=== PATIENT | female | born 1950 | race Caucasian/White ===

== ENCOUNTER 2016-08-26 20:52 | Emergency (ER) | payer SELFPAY ==
[2016-08-26 21:32] LABS: BASOPHIL# 0.2 X 10^3uL (0.0-0.1); BASOPHILS 1.7 % (0.0-2.0); EOSINOPHILS 1.4 % (0.0-6.0); EOSINOPHILS# 0.2 X 10^3uL (0.0-0.4); HEMATOCRIT 49.3 % (36.0-48.0); HEMOGLOBIN 16.8 g/dL (12.0-16.0); LYMPHOCYTES 34.4 % (20.0-40.0); MEAN CELL VOLUME 95.1 fL (80.0-100.0); MEAN CORPUSCULAR HEMOGLOBIN 32.4 pg (29.0-35.0); MEAN PLATELET VOLUME 8.3 fL (7.4-10.4); MONOCYTES 4.4 % (2.0-10.0); MONOCYTES# 0.6 X 10^3uL (0.2-1.0); NEUTROPHILS 58.1 % (54.0-75.0); NEUTROPHILS# 7.5 X 10^3uL (2.6-6.7); PLATELET COUNT 357 X 10^3uL (130-440); RED BLOOD COUNT 5.18 X 10^6uL (4.20-6.10); RED CELL DISTRIBUTION WIDTH 12.4 % (11.5-14.5)
[2016-08-26 21:40] LABS: LYMPHOCYTES# 4.5 X 10^3uL (0.8-3.8)
[2016-08-26 21:48] LABS: BLOOD UREA NITROGEN 11 mg/dL (7-17); CALCIUM 10.1 mg/dL (8.4-10.2); CHLORIDE 107 mmol/L (98-107); CREATININE 0.9 mg/dL (0.5-1.0); EST GLOMERULAR FILTRATION RATE > 60 mL/min; POTASSIUM 3.6 mmol/L (3.5-5.1); SODIUM 137 mmol/L (137-145)
[2016-08-26 21:50] LABS: GLUCOSE 309 mg/dL (70-100)
[2016-08-26] MEDS ORDERED: IPRATROPIUM/ALBUTEROL 0.5/3 MG 3 ML AMPUL.NEB INHALATION ONE (22:16)
[2016-08-26] MEDS ORDERED: ALPRAZolam 0.5 MG TABLET PO ONE (22:36)
[2016-08-26 23:38] LABS: URINE MUCUS NONE SEEN (Up to 25%); URINE RBC NONE SEEN (0-5/hpf)
[2016-08-26 23:47] LABS: URINE APPEARANCE SLIGHTLY CLOUDY; URINE COLOR YELLOW; URINE LEUKOCYTE ESTERASE NEGATIVE (NEGATIVE)
[2016-08-26 23:48] LABS: URINE BACTERIA <10 ORGANISMS/hpf (<10/hpf); URINE BILIRUBIN NEGATIVE (NEGATIVE); URINE BLOOD TRACE (NEGATIVE); URINE GLUCOSE 100mg/dL (NEGATIVE); URINE KETONE 50mg/dL (2+) (NEGATIVE); URINE NITRITE NEGATIVE (NEGATIVE); URINE PROTEIN 30mg/dL (1+) (NEG - TRACE); URINE SQUAMOUS EPITHELIAL CELL 0-5/hpf (<= 15/hpf); URINE UROBILINOGEN 0.2mg/dL (Normal) (NEG-1mg/dL); URINE WBC 0-4/hpf (0-4/hpf)
[2016-08-27] MEDS ORDERED: INSULIN REGULAR HUMAN 100 UNITS/ML ML ONE (00:26)
--- NOTE | 2016-08-27 01:21 | ER PHYSICIAN DOCUMENTATION ---
Physician Documentation [facility] Name:Corrine Lagunas Age:66 yrs Sex:Female :1950 Arrival Date:08/26/2016 Time:20:52 Bed4 Private MD: Edson Ramirez Disposition: 08/27 00:09 Critical Care: not applicable. sc Disposition: 08/27/16 00:11 Discharged to Home/Self Care. Impression: Viral Upper Respiratory Infection (URI), Diabetes with Hyperglycemia. - Condition is Good. - Discharge Instructions: DIABETES, General Info, VIRAL URI Adult - URI, Viral, No Abx (Adult). - Medical Reconciliation form form. - Follow up: Doug Carbone MD; When: 2 - 3 days; Reason: Recheck today's complaints. - Problem is new. - Symptoms are resolved. HPI: 00:05 This 66 yrs old Female presents to ER via Walk In with complaints of sc Breathing Difficulty. 00:05 The patient has shortness of breath at rest. Onset: The symptom(s)/episode sc began/occurred 1 month(s) ago. Duration: The symptoms are continuous. The patient's shortness of breath is aggravated by coughing, is alleviated by nothing, 2 courses of abx, zpack and levaquin for uri, and influenza with minimal relief. Associated signs and symptoms: Pertinent positives: non-productive cough, fever. blood sugars running higher, 5 admits in past for pneumonia. Historical: - Allergies: No known drug Allergies; - Home Meds: 1. Zoloft Oral 2. Metformin Oral - PMHx: Diabetes - NIDDM; - PSHx: Cholecysectomy; - Tetanus: < 10 years. - Ebola Screening: : Patient negative for fever greater than or equal to 101.5 degrees Fahrenheit, and additional compatible Ebola Virus Disease symptoms. Patient denies exposure to infectious person. Patient denies travel to an Ebola-affected area in the 21 days before illness onset. No symptoms or risks identified at this time. . - Immunization history: Unable to Obtain. - Social history: Smoking status: Patient states was never smoker of tobacco. Patient uses alcohol only on a social basis. marijuana. - Code Status:: Full code. ROS: 00:07 Constitutional: Negative for fever, chills, and weight loss. sc Eyes: Negative for injury, pain, redness, and discharge. ENT: Negative for injury, pain, and discharge. Neck: Negative for injury, pain, and swelling. Cardiovascular: Negative for chest pain, palpitations, and edema. Abdomen/GI: Negative for abdominal pain, nausea, vomiting, diarrhea, and constipation. Back: Negative for injury and pain. MS/Extremity: Negative for injury and deformity. Skin: Negative for injury, rash, and discoloration. 00:07 Neuro: Negative for headache, weakness, numbness, tingling, and seizure. sc 00:07 Respiratory: Positive for shortness of breath, Negative for dyspnea on exertion, hemoptysis, orthopnea, pleurisy, sputum production, wheezing. Exam: Constitutional: This is a well developed, well nourished patient who is awake, alert, and in no acute distress. Head/Face: Normocephalic, atraumatic. Eyes: Pupils equal round and reactive to light, extra-ocular motions intact. Lids and lashes normal. Conjunctiva and sclera are non-icteric and not injected. Cornea within normal limits. Periorbital areas with no swelling, redness, or edema. ENT: Nares patent. No nasal discharge, no septal abnormalities noted. Tympanic membranes are normal and external auditory canals are clear. Oropharynx with no redness, swelling, or masses, exudates, or evidence of obstruction, uvula midline. Mucous membranes moist. Neck: Trachea midline, no thyromegaly or masses palpated, and no cervical lymphadenopathy. Supple, full range of motion without nuchal rigidity, or vertebral point tenderness. No meningismus. Chest/axilla: Normal chest wall appearance and motion. Nontender with no deformity. No lesions are appreciated. Cardiovascular: Regular rate and rhythm with a normal S1 and S2. No gallops, murmurs, or rubs. Normal PMI, no JVD. No pulse deficits. Respiratory: Lungs have equal breath sounds bilaterally, clear to auscultation and percussion. No rales, rhonchi or wheezes noted. No increased work of breathing, no retractions or nasal flaring. Abdomen/GI: Soft, non-tender, with normal bowel sounds. No distension or tympany. No guarding or rebound. No evidence of tenderness throughout. Back: No spinal tenderness. No costovertebral tenderness. Full range of motion. MS/ Extremity: Pulses equal, no cyanosis. Neurovascular intact. Full, normal range of motion, negative Homans's, calves equal bilaterally. 00:07 Neuro: Awake and alert, GCS 15, oriented to person, place, time, and situation. fl Cranial nerves II-XII grossly intact. Motor strength 5/5 in all extremities. Sensory grossly intact. Cerebellar exam normal. Normal gait. 00:07 ENT: Mouth: Oral mucosa: dry. 00:07 Skin: Turgor: is poor. 00:11 Respiratory: mild respiratory distress is noted, Respirations: shallow respirations, sc tachypnea, Breath sounds: are normal. Vital Signs: 08/26 21:29 BP 168 / 98; Pulse 115; Resp 36; Temp 98; Pulse Ox 96% on R/A; Height 5 ft. 6 in. lb (167.64 cm); Pain 0/10; 22:05 BP 142 / 89; Pulse 88; Pulse Ox 97% on 2 lpm NC; Pain 0/10; lb 23:33 BP 142 / 89; Pulse 93; Resp 24; Pulse Ox 97% on 2 lpm NC; Pain 0/10; lb 08/27 01:10 BP 139 / 81; Pulse 86; Resp 20; Pulse Ox 98% on NC; Pain 0/10; lb 01:19 BP 139 / 81; Pulse 86; Resp 20; Pulse Ox 96% on R/A; Pain 0/10; lb MDM: 08/26 21:21 Patient medically screened. fl 08/27 00:08 Differential diagnosis: Anxiety Reaction Bronchitis pneumonia, pulmonary edema, sc Pulmonary Embolism. Antibiotic administration: Not indicated. Data reviewed: vital signs, nurses notes, old medical records, lab test result(s), radiologic studies, and as a result, I will continue to observe the patient, administer IV fluids. Data interpreted: Pulse oximetry: on room air is 99 %. Counseling: I had a detailed discussion with the patient and/or guardian regarding: the historical points, exam findings, and any diagnostic results supporting the discharge/admit diagnosis, lab results, radiology results, the need for outpatient follow up, to return to the emergency department if symptoms worsen or persist or if there are any questions or concerns that arise at home. ED course: hyperventilating from hyperglycemia? mild dka symptoms and vs resolved with iv fluids, small dose insulin, will need close fu in next few days.. 08/26 21:41 Order name: CBC AUTO DIF, MDIF/RMOR IF IND; Complete Time: 22:03 EDMS 08/26 22:02 Interpretation: Abnormal: WHITE BLOOD COUNT 13.0. fl 08/26 21:53 Order name: BASIC METABOLIC PANEL; Complete Time: 22:02 EDMS 08/26 22:02 Interpretation: Abnormal: GLUCOSE 309. fl 08/26 22:22 Order name: DDIMER; Complete Time: 22:25 EDMS 08/26 22:25 Interpretation: Normal. fl 08/26 22:22 Order name: BNP,NT-PRO; Complete Time: 22:25 EDMS 08/26 22:25 Interpretation: Normal. fl 08/26 23:50 Order name: UA W/ MICRO -CULTURE IF IND; Complete Time: 00:05 EDMS 08/27 00:05 Interpretation: Normal. fl 08/26 21:05 Order name: I & O; Complete Time: 21:20 lb 08/26 21:05 Order name: Oxygen; Complete Time: 21:20 lb 08/26 21:05 Order name: Place Patient On Monitor; Complete Time: 21:21 lb 08/26 21:05 Order name: Pulse Ox Continuous; Complete Time: 21:05 lb Dispensed Medications: Completed: NS 0.9% 1000 ml IV at bolus once 08/26 22:10 Drug: DuoNeb (Albuterol 2.5 mg, Atrovent 0.5 mg); 3 ml; Route: Nebulizer; lb 22:30 Follow up: Response: cough is better, less short of breath lb 22:10 Drug: NS 0.9% 1000 ml; Route: IV; Rate: bolus; Site: left antecubital; lb 08/27 01:11 Follow up: IV Intake: 1000ml lb 08/26 22:27 Drug: Xanax Tablet 0.5 mg; Route: PO; lb 23:34 Follow up: Response: Anxiety decreased lb 08/27 00:21 Drug: Insulin Regular Human 5 units; Route: IVP; Site: left antecubital; lb 01:11 Follow up: Response: blood glucose lower lb 00:21 Drug: NS 0.9% 1000 ml; Route: IV; Rate: bolus; Site: left antecubital; lb 01:11 Follow up: IV Status: Infusion discontinued; IV Intake: 1000ml lb Point of Care Testing: Blood Glucose: 08/26 21:30 Blood Glucose: 299 mg/dL; lb 08/27 01:10 Blood Glucose: 165 mg/dL; lb Urine Dip: 08/26 23:27 pH: 5.5; ; Specific [place]: 1.015; Ketones: Small; Glucose: Negative; Protein: lb Positive (+); Leukocytes: Negative; Nitrite: Negative ; Blood: Hemolyzed Trace; Bilirubin: Negative ; Urobilinogen: Normal Ranges: Critical Glucose Levels:Adult <50 mg/dl or >400 mg/dl <40 mg/dl or >180 mg/dl Signatures: Edson Corrales MD MD sc Bollock, Lynda lb
--- NOTE | 2016-08-27 01:21 | ER NURSING DOCUMENTATION ---
Nurse's Notes [facility] Name:Corrine Lagunas Age:66 yrs Sex:Female :1950 Arrival Date:08/26/2016 Time:20:52 Bed4 Private MD: Diagnosis:Viral Upper Respiratory Infection (URI);Diabetes with Hyperglycemia Presentation: 08/26 21:03 Presenting complaint:. lb 21:03 Acuity: ANNIE 3 lb 21:26 Presenting complaint: Patient states: ill for 1 month with bronchitis. on 2 abx with lb minimal relief. c/o dry cough, chills, short of breath. Transition of care: Home. Notified ED Physician of Dr. Corrales notified. 21:26 Method Of Arrival: Walk In lb Triage Assessment: 21:28 General: Appears ill, Behavior is anxious, cooperative. Pain: Denies pain. Respiratory: lb Airway is patent Trachea midline Respiratory effort is labored, Respiratory pattern is regular, Breath sounds are clear bilaterally. Reports shortness of breath Onset: The symptoms/episode began/occurred 1 month, the patient has moderate shortness of breath. Historical: - Allergies: No known drug Allergies; - Home Meds: 1. Zoloft Oral 2. Metformin Oral - PMHx: Diabetes - NIDDM; - PSHx: Cholecysectomy; - Tetanus: < 10 years. - Ebola Screening: : Patient negative for fever greater than or equal to 101.5 degrees Fahrenheit, and additional compatible Ebola Virus Disease symptoms. Patient denies exposure to infectious person. Patient denies travel to an Ebola-affected area in the 21 days before illness onset. No symptoms or risks identified at this time. . - Immunization history: Unable to Obtain. - Social history: Smoking status: Patient states was never smoker of tobacco. Patient uses alcohol only on a social basis. marijuana. - Code Status:: Full code. Screenin:39 Infectious Disease Risk None. Abuse screen: Denies threats or abuse. Denies injuries lb from another. Nutritional screening: No deficits noted. Assessment: 21:38 See Triage Assessment done by same RN. Cardiovascular: Rhythm is sinus tachycardia. lb Vital Signs: 21:29 BP 168 / 98; Pulse 115; Resp 36; Temp 98; Pulse Ox 96% on R/A; Height 5 ft. 6 in. lb (167.64 cm); Pain 0/10; 22:05 BP 142 / 89; Pulse 88; Pulse Ox 97% on 2 lpm NC; Pain 0/10; lb 23:33 BP 142 / 89; Pulse 93; Resp 24; Pulse Ox 97% on 2 lpm NC; Pain 0/10; lb 08/27 01:10 BP 139 / 81; Pulse 86; Resp 20; Pulse Ox 98% on NC; Pain 0/10; lb 01:19 BP 139 / 81; Pulse 86; Resp 20; Pulse Ox 96% on R/A; Pain 0/10; lb ED Course: 08/26 20:53 Patient arrived in ED. ma1 21:03 Farnaz Santiago is Primary Nurse. lb 21:04 Triage completed. lb 21:21 Edson Corrales MD is Attending Physician. sc 21:39 Inserted peripheral IV: 22 gauge in left antecubital area and blood collected. lb 21:39 Valuables Remains with patient Patient has correct armband on for positive lb identification. Placed in gown. Bed in low position. Call light in reach. Side rails up X 1. 21:49 Oxygen Oxygen administration via nasal cannula @ 2L/min. lb 21:50 Port Xray Completed. hz 21:50 ekg monitor tech on. Pulse ox on. NIBP on. lb 08/27 00:10 Doug Carbone MD is Referral Physician. sc Administered Medications: Completed: NS 0.9% 1000 ml IV at bolus once 08/26 22:10 Drug: DuoNeb (Albuterol 2.5 mg, Atrovent 0.5 mg); 3 ml; Route: Nebulizer; lb 22:30 Follow up: Response: cough is better, less short of breath lb 22:10 Drug: NS 0.9% 1000 ml; Route: IV; Rate: bolus; Site: left antecubital; lb 08/27 01:11 Follow up: IV Intake: 1000ml lb 08/26 22:27 Drug: Xanax Tablet 0.5 mg; Route: PO; lb 23:34 Follow up: Response: Anxiety decreased lb 08/27 00:21 Drug: Insulin Regular Human 5 units; Route: IVP; Site: left antecubital; lb 01:11 Follow up: Response: blood glucose lower lb 00:21 Drug: NS 0.9% 1000 ml; Route: IV; Rate: bolus; Site: left antecubital; lb 01:11 Follow up: IV Status: Infusion discontinued; IV Intake: 1000ml lb Point of Care Testing: Blood Glucose: 08/26 21:30 Blood Glucose: 299 mg/dL; lb 08/27 01:10 Blood Glucose: 165 mg/dL; lb Urine Dip: 08/26 23:27 pH: 5.5; ; Specific [place]: 1.015; Ketones: Small; Glucose: Negative; Protein: lb Positive (+); Leukocytes: Negative; Nitrite: Negative ; Blood: Hemolyzed Trace; Bilirubin: Negative ; Urobilinogen: Normal Ranges: Intake: 08/27 01:11 IV: 1000ml; Total: 1000ml. lb 01:11 IV: 1000ml; Total: 2000ml. lb Outcome: 00:11 Discharge ordered by . [place] 01:19 Discharged to home ambulatory. 01:19 Condition: stable 01:19 Discharge Assessment: Patient awake, alert and oriented x 3. No cognitive and/or functional deficits noted. Patient verbalized understanding of disposition instructions. 01:19 Instructed on discharge instructions, follow up and referral plans. 01:19 IV D/Omero 01:20 Patient left the ED. lb Signatures: Edson Corrales MD MD sc Bollock, Lynda lb Zolnowski, Heather hz Addison, Melissa ma1
--- NOTE | 2016-08-30 15:03 | RADIOLOGY REPORT ---
A limited single portable view of the chest is compared with a prior film dated 10/27/2015. The heart, vessels and lungs are stable and unremarkable. No infiltrate, fluid or pneumothorax is seen. IMPRESSION: Stable, unremarkable limited single portable view of the chest. MTDD
== END 2016-08-27 01:21 | disposition home or self-care (01) ==
LOC: ER 20:52
DX: J06.9 Acute upper respiratory infection, unspecified (principal); E11.65 Type 2 diabetes mellitus with hyperglycemia; E86.0 Dehydration; R06.82 Tachypnea, not elsewhere classified; Z79.899 Other long term (current) drug therapy
CPT/HCPCS: 36415; 71010; 80048; 81001; 83880; 85025; 85379; 87040; 94640; 96361; 96374; 99285; J1815; J7620

== ENCOUNTER 2016-12-20 18:18 | Emergency (ER) | payer SELFPAY ==
--- NOTE | 2016-12-20 18:53 | ER NURSING DOCUMENTATION ---
Nurse's Notes [facility] Name:Corrine Lagunas Age:66 yrs Sex:Female :1950 Arrival Date:12/20/2016 Time:18:18 Bed1 Private MD: Diagnosis:Puncture Wound of Foot Presentation: 12/20 18:20 Acuity: ANNIE 4 rh 18:21 Transition of care: patient was not received from another setting of care. Notified ED nf Physician of patient's arrival and CC Dr. Alaniz notified. 18:21 Method Of Arrival: Private Vehicle nf 18:27 Time Last Known Well for the patient was right foot 3rd digit puncture wound at 1530 nf today, patient concerned with infection / has diabetes. 18:35 Presenting complaint: Patient states: right foot 3rd digit puncture wound @1530, nf patient very concerned with diabetic infection. Triage Assessment: 18:31 General: Appears well nourished, well groomed, Behavior is pleasant. Pain: Denies pain. nf 18:36 Musculoskeletal: Circulation, motion, and sensation intact Capillary refill < 3 seconds nf Range of motion intact in all extremities. Injury Description: Puncture sustained to plantar aspect of right third digit is superficial, was sustained 2-4 hours ago. unknown source of puncture; patient has cleansed the area and applied antibiotic ointment. Historical: - Allergies: No known drug Allergies; - Home Meds: 1. Metformin Oral 2. Zoloft Oral 3. gabapentin oral 4. trazadone - PMHx: Diabetes - NIDDM; - PSHx: right hand reconstruction; Cholecysectomy; - Tetanus: < 10 years. - Ebola Screening: : No symptoms or risks identified at this time. . - Immunization history: NA. - Social history: Smoking status: Patient states was never smoker of tobacco. Patient uses street drugs, marijuana, Patient/guardian denies using alcohol. Screenin:33 Infectious Disease Risk None. Abuse screen: Denies threats or abuse. Nutritional nf screening: No deficits noted. Assessment: 18:33 See Triage Assessment done by same RN. nf Vital Signs: 18:31 BP 129 / 83; Pulse 97; Resp 16; Temp 99.0(O); Pulse Ox 94% on R/A; Weight 83.91 kg; nf Height 5 ft. 6 in. (167.64 cm); Pain 0/10; 18:31 Body Mass Index 29.86 (83.91 kg, 167.64 cm) ED Course: 18:19 Patient arrived in ED. 18:20 Triage completed. 18:21 Swapna Thompson, RN is Primary Nurse. 18:22 Diaz Alaniz MD is Attending Physician. tl1 18:33 Arm band placed on Bed in low position Call Light in Reach Side rails up x1. Family nf accompanied patient. 18:33 Valuables Remains with patient. Door closed. Noise minimized. Lights dimmed. Moved to private room. Verbal reassurance given. Pillow given. 18:38 Doug Carbone MD is Referral Physician. tl1 Administered Medications: 18:50 Drug: Bacitracin Ointment (500 unit/g) 1 application; Route: Topical; Site: wound; 18:54 Follow up: Response: Medication administered at discharge. Outcome: 18:39 Discharge ordered by . tl1 18:51 Discharged to home ambulatory, with family. 18:51 Condition: good 18:51 Discharge Assessment: Patient awake, alert and oriented x 3. No cognitive and/or functional deficits noted. Patient verbalized understanding of disposition instructions. 18:51 Discharge instructions given to patient, family, Instructed on discharge instructions, follow up and referral plans. medication usage, wound care, Demonstrated understanding of instructions, medications, Prescriptions given X 1, clindamycin 18:53 Patient left the ED. 06 17:21 Discharge F/U Call: Unable to reach: non-working number lp Signatures: Swapna Thompson, YAZ MUKHERJEE Shannon Alba RN RN Diaz Alaniz MD MD tl1 Susy [place]
--- NOTE | 2016-12-20 18:53 | ER PHYSICIAN DOCUMENTATION ---
Physician Documentation [facility] Name:Corrine Lagunas Age:66 yrs Sex:Female :1950 Arrival Date:12/20/2016 Time:18:18 Bed1 Private MD: Diaz Louis Disposition: 12/20/16 18:39 Discharged to Home/Self Care. Impression: Puncture Wound of Foot. - Condition is Good. - Discharge Instructions: PUNCTURE WOUND, Foot. - Prescriptions for Clindamycin HCl 150 mg Oral - take 1 capsule by ORAL route every 6 hours for 5 days; 20 capsule. - Medical Reconciliation form form. - Follow up: Doug Carbone MD; When: 2 - 3 days; Reason: Recheck today's complaints, Continuance of care. - Problem is new. - Symptoms are unchanged. HPI: 12/20 18:22 This 66 yrs old Female presents to ER via Private Vehicle with complaints of tl1 Foot Injury. 18:22 The complaints affect the right foot. Context: resulted from a push pin got caught in tl1 her sandals at about 1530 today and then bled. She washed it and put some antibiotic ointment on it and came here for evaluation, very concerned about the chance of infections. She requests antibiotics. Tetanus shot is UTD. She is a patient of Dr Carbone'rogelio.. Onset: The symptom(s)/episode began/occurred just prior to arrival. Severity of symptoms: At their worst the symptoms were very mild, in the emergency department the symptoms are unchanged. Historical: - Allergies: No known drug Allergies; - Home Meds: 1. Metformin Oral 2. Zoloft Oral 3. gabapentin oral 4. trazadone - PMHx: Diabetes - NIDDM; - PSHx: right hand reconstruction; Cholecysectomy; - Tetanus: < 10 years. - Ebola Screening: : No symptoms or risks identified at this time. . - Immunization history: NA. - Social history: Smoking status: Patient states was never smoker of tobacco. Patient uses street drugs, marijuana, Patient/guardian denies using alcohol. ROS: 18:33 MS/extremity: Positive for puncture, of the plantar aspect of right third toe. tl1 18:33 All other systems are negative. Exam: 18:33 Constitutional: This is a well developed, well nourished patient who is awake, alert, tl1 and in no acute distress. 18:33 Cardiovascular: Rate: normal. 18:33 Respiratory: Respirations: normal. 18:33 Musculoskeletal/extremity: Extremities: grossly normal except: noted in the plantar aspect of right third toe: puncture, which is tiny.. 18:33 Skin: see above. Vital Signs: 18:31 BP 129 / 83; Pulse 97; Resp 16; Temp 99.0(O); Pulse Ox 94% on R/A; Weight 83.91 kg; nf Height 5 ft. 6 in. (167.64 cm); Pain 0/10; 18:31 Body Mass Index 29.86 (83.91 kg, 167.64 cm) nf MDM: 18:22 Patient medically screened. tl1 18:37 Differential diagnosis: puncture. Data reviewed: vital signs, nurses notes, and as a tl1 result, I will discharge patient. Counseling: I had a detailed discussion with the patient and/or guardian regarding: the historical points, exam findings, and any diagnostic results supporting the discharge/admit diagnosis, the need for outpatient follow up, with the patient's primary care provider, to return to the emergency department if symptoms worsen or persist or if there are any questions or concerns that arise at home. Response to treatment: There is no appreciated change of the patient's symptoms at this time. 12/20 18:40 Order name: Wound Care; Complete Time: 18:40 nf Dispensed Medications: 18:50 Drug: Bacitracin Ointment (500 unit/g) 1 application; Route: Topical; Site: wound; nf 18:54 Follow up: Response: Medication administered at discharge. nf Signatures: Swapna Thompson, RN RN Diaz Schultz MD MD tl1
== END 2016-12-20 18:53 | disposition home or self-care (01) ==
LOC: ER 18:18
DX: S91.331A Puncture wound without foreign body, right foot, initial encounter (principal); W45.8XXA Other foreign body or object entering through skin, initial encounter; Y93.01 Activity, walking, marching and hiking; E11.9 Type 2 diabetes mellitus without complications; Z79.899 Other long term (current) drug therapy
CPT/HCPCS: 99283